=== PATIENT | female | born 1985 | race Caucasian/White ===

== ENCOUNTER → 2024-01-29 07:08 | Outpatient (REF) | payer OTHER, SELFPAY | LOC: PAVMRI 07:08 | PROVIDERS: ATTENDING PHYSICIAN Internal Medicine Gastroenterology; FAMILY PHYSICIAN Nurse Practitioner Adult Health | DX: R74.8 Abnormal levels of other serum enzymes (principal); K58.1 Irritable bowel syndrome with constipation | CPT/HCPCS: 74183 ==